=== PATIENT | female | born 1995 | race Caucasian/White ===

== ENCOUNTER → 2016-08-01 | Outpatient (REF) | payer BC | LOC: M SFHCWAGY 15:13 | PROVIDERS: ATTEND Nurse Practitioner Women's Health | DX: Z12.4 Encounter for screening for malignant neoplasm of cervix (principal) ==

== ENCOUNTER → 2018-01-28 | Outpatient (REF) | payer BC | LOC: M LAB REF 12:13 | DX: N30.01 Acute cystitis with hematuria (principal) | CPT/HCPCS: 87086 ==

== ENCOUNTER → 2018-06-09 | Outpatient (REF) | payer BC ==
[2018-06-09 23:10] LABS: CHLAMYDIA DNA AMPLIFICATION NEGATIVE (NEGATIVE); GC DNA AMPLIFICATION NEGATIVE (NEGATIVE)
== END ==
LOC: M LAB REF 16:49
DX: N39.0 Urinary tract infection, site not specified (principal)
CPT/HCPCS: 87186

== ENCOUNTER → 2018-10-09 | Outpatient (REF) | payer BC | LOC: M LAB REF 19:14 | PROVIDERS: ATTEND Physician Assistant | DX: N39.0 Urinary tract infection, site not specified (principal) ==

== ENCOUNTER → 2019-11-10 | Outpatient (REF) | payer BC | LOC: M SFHCWAGY 18:22 | PROVIDERS: ATTEND Nurse Practitioner Women's Health | DX: Z12.4 Encounter for screening for malignant neoplasm of cervix (principal) ==

== ENCOUNTER → 2021-03-09 | Outpatient (REF) | payer BC | LOC: M SFHCWAGY 12:00 | PROVIDERS: ATTEND Nurse Practitioner Women's Health | DX: Z12.4 Encounter for screening for malignant neoplasm of cervix (principal) ==

== ENCOUNTER → 2023-11-01 | Outpatient (CLI) | payer BC ==
[2023-11-01 15:24] LABS: HEMATOCRIT 36.6 % (36.0-47.0); HEMOGLOBIN 12.2 g/dl (12.0-15.5); MEAN CORPUSCULAR HEMOGLOBIN 31.4 pg (27.0-33.0); MEAN CORPUSCULAR HGB CONC 33.3 g/dl (32.0-36.5); MEAN CORPUSCULAR VOLUME 94.3 fl (80.0-96.0); PLATELET COUNT, AUTOMATED 307 10^3/uL (150-450); RED BLOOD COUNT 3.88 10^6/uL (4.00-5.40); WHITE BLOOD COUNT 8.3 10^3/uL (4.0-10.0)
[2023-11-01 16:34] LABS: HIV 1&2 SCREEN NEGATIVE (NEGATIVE)
[2023-11-01 16:41] LABS: HEPATITIS C VIRUS ABY INDEX < 0.02 INDEX (<0.8)
[2023-11-01 16:44] LABS: GC DNA AMPLIFICATION NEGATIVE (NEGATIVE)
== END ==
LOC: M PLALAB 14:10
PROVIDERS: ATTEND Obstetrics & Gynecology
DX: Z34.81 Encounter for supervision of other normal pregnancy, first trimester (principal)

== ENCOUNTER → 2023-12-23 | Outpatient (CLI) | payer BC | LOC: M WHC 13:32 | PROVIDERS: ATTEND Advanced Practice Midwife | DX: Z34.02 Encounter for supervision of normal first pregnancy, second trimester (principal); Z3A.20 20 weeks gestation of pregnancy ==

== ENCOUNTER → 2024-01-27 | Outpatient (CLI) | payer BC ==
[2024-01-27 13:23] LABS: HEMATOCRIT 38.3 % (36.0-47.0); HEMOGLOBIN 12.4 g/dl (12.0-15.5); MEAN CORPUSCULAR HEMOGLOBIN 31.6 pg (27.0-33.0); MEAN CORPUSCULAR HGB CONC 32.4 g/dl (32.0-36.5); MEAN CORPUSCULAR VOLUME 97.5 fl (80.0-96.0); PLATELET COUNT, AUTOMATED 255 10^3/uL (150-450); RED BLOOD COUNT 3.93 10^6/uL (4.00-5.40); WHITE BLOOD COUNT 7.5 10^3/uL (4.0-10.0)
[2024-01-27 13:56] LABS: GLUCOSE CHALLENGE TEST 1 HOUR 104 MG/DL (LESS THAN 140)
[2024-01-27 14:26] LABS: HIV 1&2 SCREEN NEGATIVE (NEGATIVE)
[2024-01-27 14:33] LABS: HEPATITIS C VIRUS ABY INDEX < 0.02 INDEX (<0.8)
[2024-01-27 14:58] LABS: GC DNA AMPLIFICATION NEGATIVE (NEGATIVE)
== END ==
LOC: M PLALAB 08:54
PROVIDERS: ATTEND Obstetrics & Gynecology
DX: Z34.80 Encounter for supervision of other normal pregnancy, unspecified trimester (principal)

== ENCOUNTER → 2024-04-15 | Outpatient (REF) | payer BC | LOC: M PLALAB 11:35 | PROVIDERS: ATTEND Obstetrics & Gynecology | DX: Z36.85 Encounter for antenatal screening for Streptococcus B (principal); Z3A.36 36 weeks gestation of pregnancy ==

== ENCOUNTER 2024-05-02 08:48 | Inpatient (IN) | payer BC ==
[2024-05-02] VITALS (31 sets, daily range): BP systolic 104–162; BP diastolic 49–77; TEMP 98; O2SAT 99–100
[~2024-05-02] VITALS: Ht 170.2 cm; Wt 83.2 kg
[2024-05-02] MEDS: PRENATAL VITAMINS CHEWABLE TABLET PO SCH (09:00)
[2024-05-02] MEDS ORDERED: PRENTAB9 PO (09:14)
[2024-05-02] MEDS ORDERED: OXYTOCIN INJ 10UNITS/ML 1ML VIAL IM PRN (09:15)
[2024-05-02] MEDS ORDERED: HOME MED LIST COMPLETE! XX SCH (09:15)
[2024-05-02] MEDS ORDERED: CARBOPROST TROMETHAMINE 250 MCG/ML AMP IM PRN (09:15)
[2024-05-02] MEDS ORDERED: LIDOCAINE 1% MDV 20ML VIAL INFIL PRN (09:15)
[2024-05-02] MEDS ORDERED: OXYTOCIN DRIP 30 UNITS in IV 1 EA IV PRN (09:15)
[2024-05-02] MEDS ORDERED: TRANEXAMIC ACID INJection 1,000 MG in NS 100 ML IV PRN (09:15)
[2024-05-02] MEDS ORDERED: OXYTOCIN DRIP 30 UNITS in IV 1 EA IV SCH (09:15)
[2024-05-02] MEDS ORDERED: OXYTOCIN INJ 10UNITS/ML 1ML VIAL IV PRN (09:15)
[2024-05-02] MEDS ORDERED: METHYLERGONOVINE MALEATE 0.2MG/ML 1ML VIAL IM PRN (09:15)
[2024-05-02 10:13] LABS: HEMATOCRIT 37.6 % (36.0-47.0); HEMOGLOBIN 12.7 g/dl (12.0-15.5); MEAN CORPUSCULAR HEMOGLOBIN 31.3 pg (27.0-33.0); MEAN CORPUSCULAR HGB CONC 33.8 g/dl (32.0-36.5); MEAN CORPUSCULAR VOLUME 92.6 fl (80.0-96.0); PLATELET COUNT, AUTOMATED 271 10^3/uL (150-450); RED BLOOD COUNT 4.06 10^6/uL (4.00-5.40); WHITE BLOOD COUNT 8.1 10^3/uL (4.0-10.0)
[2024-05-02] MEDS ORDERED: ONDANSETRON 4MG 2ML VIAL IV PRN (10:45)
[2024-05-02] MEDS ORDERED: ePHEDrine SULFATE 25 MG/5 ML(5MG/ML) SYRINGE IVP PRN (10:45)
[2024-05-02] MEDS ORDERED: EPIDURAL/PCA KEYS XX PRN (10:45)
[2024-05-02] MEDS ORDERED: LR 500 ML IV PRN (10:45)
[2024-05-02] MEDS ORDERED: diphenhydrAMINE 50MG/ML VIAL IV PRN (10:45)
[2024-05-02] MEDS ORDERED: NALOXONE INJ 0.4MG/1ML VIAL IV PRN (10:45)
[2024-05-02] MEDS: LR 1,000 ML IV SCH (11:12)
[2024-05-02 11:14] LABS: HEPATITIS C VIRUS ABY INDEX 0.03 INDEX (<0.8)
[2024-05-02] MEDS: FENTANYL/ROPIVACAINE/NACL BAG 100 ML EPIDURAL SCH (11:17)
[2024-05-02 16:09] LABS: CORD GAS ABE A -6.8; CORD GAS ABE V -5.3; CORD GAS HCO3 A 19.4 MMOL/L; CORD GAS HCO3 V 21.4 MMOL/L; CORD GAS O2 SAT A 80.5 %; CORD GAS O2 SAT V 71.8 %; CORD GAS PCO2 V 45.6 mmHg; CORD GAS PH A 7.292 UNITS; CORD GAS PH V 7.289 UNITS; CORD GAS PO2 A 39.6 mmHg; CORD GAS PO2 V 33.4 mmHg; CORD GAS SBC A 18.6 MMOL/L; CORD GAS SBC V 19.6 MMOL/L; CORD GAS TCO2 A 20.6 MMOL/L; CORD GAS TCO2 V 22.8 MMOL/L
[2024-05-02] MEDS ORDERED: RHOGAM 300MCG (1500IU) INJ IM SCH (16:15)
[2024-05-02] MEDS ORDERED: ANUSOL HC CREAM 30GM TOP PRN (16:15)
[2024-05-02] MEDS ORDERED: MOM 30ML SUSPENSION UDC PO PRN (16:15)
[2024-05-02] MEDS: OXYTOCIN DRIP 30 UNITS in IV 1 EA IV PRN (16:42)
[2024-05-03 05:48] VITALS: BP 110/55; O2SAT 100
[2024-05-03] MEDS: DOCUSATE SODIUM 100MG CAPSULE PO PRN (07:59)
[2024-05-03] MEDS: DIBUCAINE 1% OINTMENT 30GM TOP PRN (07:59)
[2024-05-03] MEDS: IBUPROFEN 800 MG TAB PO PRN (08:00)
[2024-05-04 05:28] VITALS: BP 123/67; O2SAT 99
[2024-05-04] MEDS: ACETAMINOPHEN 500 MG TAB PO PRN (07:50)
[2024-05-04] MEDS ORDERED: MEASLES,MUMPS,RUBELLA VACCINE INJ (MMR-II) SC.IMMUN ONE (09:00)
[2024-05-04] MEDS ORDERED: ACET-683 PO (13:11)
[2024-05-04] MEDS ORDERED: IBUP80TA PO (13:11)
== END 2024-05-04 13:50 | disposition home or self-care (01) | DRG 560 ==
LOC: M LDO 08:48 → M LDI 09:18 → M OBS 18:00
PROVIDERS: ADMIT Obstetrics & Gynecology; ATTEND Obstetrics & Gynecology
PROC: 10E0XZZ Delivery of Products of Conception, External Approach (ICD-10-PCS; principal; 2024-05-02)
PROC: 0KQM0ZZ Repair Perineum Muscle, Open Approach (ICD-10-PCS; 2024-05-02)
DX: O70.1 Second degree perineal laceration during delivery (principal); Z37.0 Single live birth; Z3A.38 38 weeks gestation of pregnancy

== ENCOUNTER → 2024-09-24 | Outpatient (REF) | payer BC, OTHER ==
[~2024-09-24] MED LIST: ACET-683 PO; IBUP80TA PO; PRENTAB9 PO
[2024-09-26 13:01] LABS: HPV APTIMA Not Detected (Not Detected)
== END ==
LOC: M SFHCWAGY 13:37
PROVIDERS: ATTEND Obstetrics & Gynecology
DX: Z12.4 Encounter for screening for malignant neoplasm of cervix (principal)